=== PATIENT | female | born 1965 | race Caucasian/White ===

== ENCOUNTER 2020-03-25 08:13 | Outpatient (CLI) | payer OTHER, SELFPAY ==
--- NOTE | 2020-03-25 08:31 | MM_ITS ---
WS: [id number] BILATERAL DIGITAL SCREENING MAMMOGRAPHY WITH CAD CLINICAL INFORMATION: SCREENING HISTORY: Screening mammogram. No current complaints. COMPARISON: TECHNIQUE: Bilateral CC and MLO views. FINDINGS: The breasts are composed of heterogeneous fibroglandular density tissue, which can limit the detectio n of small underlying mass lesions. No suspicious mass, asymmetry, calcifications, or architectural d istortion. No evidence of malignancy. MM/[place] [id number] IMPRESSION: BI-RADS: 1-Negative FOLLOW UP: 1 Year Follow-up Recommend return to annual screening mammography.
== END 2020-03-25 08:14 | disposition home or self-care (01) ==
LOC: RADSHAW 08:26
PROVIDERS: PCP Internal Medicine; Visit Provider Nurse Practitioner Family
DX: Z12.31 Encounter for screening mammogram for malignant neoplasm of breast (principal)
CPT/HCPCS: 77067

== ENCOUNTER 2020-04-04 11:12 | Outpatient (CLI) | payer OTHER, SELFPAY ==
--- NOTE | 2020-04-04 | XRR_ITS ---
PROCEDURE INFORMATION: Exam: XR Right Hip with Pelvis when Performed Exam date and time: 04/04/2020 11:33 AM Age: 55 years old Clinical indication: Patient HX: C/O low back pain and right hip pain x years; Additional info: Hip joint pain TECHNIQUE: Imaging protocol: XR Right hip with pelvis when performed. Views: 1 view. COMPARISON: No relevant prior studies available. FINDINGS: Bones/joints: Unremarkable. No acute fracture. Soft tissues: Unremarkable. XR/XR hip RT 2-3V wo/w pel* [id number] IMPRESSION: No acute findings.
--- NOTE | 2020-04-04 | XRR_ITS ---
PROCEDURE INFORMATION: Exam: XR Lumbosacral Spine, 2 or 3 Views Exam date and time: 04/04/2020 11:33 AM Age: 55 years old Clinical indication: Patient HX: C/O low back pain and right hip pain; Additional info: Lumbago TECHNIQUE: Imaging protocol: XR of the lumbosacral spine, 2 or 3 views. COMPARISON: No relevant prior studies available. FINDINGS: Vertebrae: There is narrowing of the intervertebral disc space of multiple levels corresponding to mild osteoarthritis. The examination is negative for acute fracture or subluxation. Vertebral height is preserved. Pedicles are otherwise unremarkable. Soft tissues: Paravertebral soft tissues are unremarkable. XR/XR lumbar spine min 4V [id number] IMPRESSION: 1. Mild osteoarthritis. 2. Negative for acute bony abnormality.
== END 2020-04-04 11:13 | disposition home or self-care (01) ==
LOC: RADWPI 11:16
PROVIDERS: Family Provider Internal Medicine; PCP Internal Medicine; Visit Provider Nurse Practitioner Family
DX: M54.5 Low back pain (principal); M25.551 Pain in right hip; M47.816 Spondylosis without myelopathy or radiculopathy, lumbar region
CPT/HCPCS: 72114; 73502

== ENCOUNTER 2020-05-03 08:30 | Outpatient (CLI) | payer OTHER, SELFPAY ==
--- NOTE | 2020-05-03 08:34 | MR_ITS ---
WS: [id number] MRI LUMBAR SPINE NONCONTRAST HISTORY: DEGENERATIVE DISC DISEASE LUMBOSACRAL SPINE W/RADICULOPATHY COMPARISON: 08/09/2009 TECHNIQUE: Sagittal and axial multisequence imaging is submitted. Moderate progression of degenerative disc disease and spondylosis since 2008. Mild RIGHT curvature of the lower lumbar spine. 3 mm retrolisthesis of L2 and L3. Mild disc space narrowing and desiccation at L2-3, L4-5 and L5-S1. Degenerative marrow edema in L2 an d L3 with endplate osteophytes. 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 Conus terminates normally at L1-2 disc level. L1-L2: Normal. L2-L3: Diffuse annular disc bulging. Vertebral body osteophytes with mild facet and ligamentum flavum hypertrophy. Very mild bilateral foraminal narrowing and encroachment upon the RIGHT L3 nerve root i n the subarticular recess. RIGHT foraminal disc protrusion not contacting the nerve root. L3-L4: Diffuse annular disc bulging with a RIGHT paracentral small disc protrusion with annular fissu re. Mild contact on the RIGHT L4 nerve root in the subarticular recess. No significant foraminal sten osis. L4-L5: Moderate annular disc bulging and osteophytosis. Disc is asymmetric and more prominent to the LEFT. Moderate ligamentum flavum and facet joint arthritis. L5-S1: Mild annular disc bulge. No stenosis. Paravertebral soft tissues are normal. RIGHT renal cyst measures 4.0 cm. MR/MR lumbar spine wo con* [id number] IMPRESSION: 1. Moderate progression of spondylosis and degenerative changes since 2008. 2. Most significant advancing disc disease at L2-3. 3. RIGHT paracentral disc protrusion and mild contact on the RIGHT L4 nerve ro ot in the subarticular recess at L3-4. 4. RIGHT foraminal disc protrusion without contact on the nerve root at L2-3. 5. Mild bilateral foraminal narrowing and mild encroachment upon the RIGHT L3 nerve root. 6. No significant stenosis.
== END 2020-05-03 08:31 | disposition home or self-care (01) ==
LOC: RADSHAW 08:33
PROVIDERS: PCP Internal Medicine; Visit Provider Internal Medicine
DX: M51.17 Intervertebral disc disorders with radiculopathy, lumbosacral region (principal); M47.816 Spondylosis without myelopathy or radiculopathy, lumbar region; M51.36 Other intervertebral disc degeneration, lumbar region; M51.26 Other intervertebral disc displacement, lumbar region
CPT/HCPCS: 72148

== ENCOUNTER → 2020-07-28 09:52 | Outpatient (BNVA) | payer OTHER, SELFPAY | PROVIDERS: PCP Internal Medicine; Visit Provider Urology | DX: N39.0 Urinary tract infection, site not specified (principal) | CPT/HCPCS: 81003 ==

== ENCOUNTER 2020-08-25 10:28 | Outpatient (RCR) | payer OTHER, SELFPAY | END 2020-09-15 23:59 | disposition home or self-care (01) | LOC: SPT 10:28 | PROVIDERS: PCP Internal Medicine; Referring Provider Chiropractor; Visit Provider Chiropractor | DX: M54.5 Low back pain (principal) | CPT/HCPCS: 97110; 97161 ==

== ENCOUNTER 2021-04-26 07:55 | Outpatient (CLI) | payer OTHER, SELFPAY ==
--- NOTE | 2021-04-26 08:02 | MM_ITS ---
WS: [id number] SCREENING DIGITAL MAMMOGRAM WITH CAD HISTORY: Screening. COMPARISON: 03/25/2020 and 01/23/2019 Bilateral CC and MLO views submitted. Computer aided detection analyzed. Breast composition: There are scattered areas of fibroglandular density. No suspicious masses, microc alcifications or architectural distortion. MM/[place] [id number] IMPRESSION: BI-RADS: 1-Negative FOLLOW UP: 1 Year Follow-up
== END 2021-04-26 07:56 | disposition home or self-care (01) ==
LOC: RADSHAW 07:59
PROVIDERS: PCP Internal Medicine; Visit Provider Internal Medicine
DX: Z12.31 Encounter for screening mammogram for malignant neoplasm of breast (principal)
CPT/HCPCS: 77067

== ENCOUNTER → 2021-06-07 15:17 | Outpatient (BNVA) | payer OTHER, SELFPAY | PROVIDERS: PCP Internal Medicine; Visit Provider Registered Nurse Neonatal Intensive Care | DX: S99.911A Unspecified injury of right ankle, initial encounter (principal); X58.XXXA Exposure to other specified factors, initial encounter; M79.89 Other specified soft tissue disorders | CPT/HCPCS: 73610 ==

== ENCOUNTER → 2021-06-09 14:16 | Outpatient (BNVA) | payer OTHER, SELFPAY | PROVIDERS: PCP Internal Medicine; Visit Provider Podiatrist Foot & Ankle Surgery | DX: S82.891A Other fracture of right lower leg, initial encounter for closed fracture (principal); X58.XXXA Exposure to other specified factors, initial encounter | CPT/HCPCS: 73610 ==

== ENCOUNTER → 2021-06-22 12:51 | Outpatient (BNVA) | payer OTHER, SELFPAY | PROVIDERS: PCP Internal Medicine; Visit Provider Podiatrist Foot & Ankle Surgery | DX: S82.891A Other fracture of right lower leg, initial encounter for closed fracture (principal); S82.61XA Displaced fracture of lateral malleolus of right fibula, initial encounter for closed fracture; X58.XXXA Exposure to other specified factors, initial encounter | CPT/HCPCS: 73610 ==

== ENCOUNTER → 2021-08-25 09:57 | Outpatient (BNVA) | payer OTHER, SELFPAY | PROVIDERS: PCP Internal Medicine; Visit Provider Surgery | DX: Z80.0 Family history of malignant neoplasm of digestive organs (principal); Z20.822 Contact with and (suspected) exposure to COVID-19 | CPT/HCPCS: 87635 ==

== ENCOUNTER 2021-08-28 07:52 | Day surgery (SDC) | payer OTHER, SELFPAY ==
[2021-08-25 11:33] VITALS: BMI 22.6
--- NOTE | 2021-08-28 08:06 | ANES.PREANE2 ---
Pre-Anesthetic Assessment Pre-Anesthetic Assessment: Height/Weight: Height 1.68 m Weight 63.503 kg Proposed Procedure: Operation Date: 08/28/21 09:30 Proposed Procedures p Colonoscopy 08462 Z80.0 R19.4(Not Applicable) - Stoney Wild MD Was Beta Krystian taken within 24 hours: N/A Was Clonidine taken within 24 hours: N/A Social: Social History: No alcohol and No tobacco Exam: Pre-Anes Outpt Exam: alert, oriented x 3, clear to auscultation bilaterally and regular rate & rhythm Airway: Submandibular: WNL Cervical ROM: WNL MP: 2 Dentition: Chipped and Full CV/HEM: CV/HEM: HTN Anesthetic Plan: ASA status: 2 Anesthesia: MAC Risk of > 500 ml blood loss (7ml/kg in children): No PFSH Anesthesia PFSH: Medical History (Updated 07/26/21 @ 12:19 by Serjio Tipton DPM) Anxiety Chronic back pain HTN (hypertension) Recurrent UTI Renal cyst Surgical History History of partial hysterectomy Hx of bladder repair surgery Family History Father Cancer COLON Mother CAD (coronary artery disease) LYMPHOMA, HTN, DIABETES,THYROID PROBLEMS Social History Smoking and tobacco status: never smoked Alcohol intake: current Alcohol intake frequency: holidays/special occasions only Adopted: No Caregiver/support person: No Marital status: / Current occupational status: employed Data Anesthesia Cardiac Studies: No Data to Display
[2021-08-28 08:18] VITALS: BP 157/97; PULSE 86; RESP 18; TEMP 36.2; O2SAT 98
[2021-08-28] MEDS: sodium chloride 0.9% 1,000 ML 30 ML IV (08:27)
--- NOTE | 2021-08-28 09:44 | P.HP_ITS ---
Same Day Surgery H&P Indication for Procedure/HPI DATE OF PROCEDURE: August 28, 2021 CHIEF COMPLAINT/INDICATIONFOR SURGICAL PROCEDURE: SCREENING COLONOSCOPY PREOP DIAGNOSIS: Family history of colon cancer PLANNED PROCEDRUE: Operation Date: 08/28/21 09:30 Proposed Procedures p Colonoscopy 62371 Z80.0 R19.4(Not Applicable) - Stoney Wild MD This is a pleasant 56 years old female patient referred to my practice for screening colonoscopy as she does report her dad had history of colon cancer x2 and ended up by colostomy. Patient's last colonoscopy 5 years ago and was normal. ROS All systems have been reviewed negative except as per the above or per problem list Medications/Allergies* Home Medications Medication Instructions Recorded Confirmed Type estradiol 1 mg tablet 1 mg PO DAILY 07/28/20 08/25/21 History hydrochlorothiazide 25 mg tablet 25 mg PO DAILY 07/28/20 08/25/21 History lisinopril 5 mg tablet 5 mg PO DAILY 07/28/20 08/25/21 History Allergies/Adverse Reactions Allergy/AdvReac Type Severity Reaction Status Date / Time codeine Allergy Unknown Unknown Verified 08/28/21 09:51 tramadol Allergy Unknown ADR-Anxiety Verified 08/28/21 09:51 Current Medications: Generic Name Dose Route Start Last Admin Trade Name Freq PRN Reason Stop Dose Admin Sodium Chloride 1,000 mls @ 30 mls/hr 08/28/21 08:15 08/28/21 08:27 Sodium Chloride 0.9% IV 08/29/21 08:14 30 mls/hr .Q24H JENNIFER Administration Pertinent History/Comorbid Conditions* Medical History (Updated 07/26/21 @ 12:19 by Serjio Tipton DPM) Anxiety Chronic back pain HTN (hypertension) Recurrent UTI Renal cyst Surgical History (Updated 07/28/20 @ 11:41 by Ne Jaramillo APRN) History of partial hysterectomy Hx of bladder repair surgery Family History (Updated 07/14/20 @ 15:20 by CHRISTIANO Valle) CAD (coronary artery disease) Mother LYMPHOMA, HTN, DIABETES,THYROID PROBLEMS Cancer Father COLON Social History Smoking and tobacco status: never smoked Alcohol intake: current Alcohol intake frequency: holidays/special occasions only Adopted: No Caregiver/support person: No Marital status: / Current occupational status: employed Pertinent Exam Findings alert, oriented x 3, regular rate & rhythm and procedure specific exam findings (Abdominal examination nontender nondistended soft) Recommendations Surgery/Procedure today Other Plans: Plan of care; After thorough history and physical examination and reviewing the chart, plan to perform screening colonoscopy. I discussed with the patient in details the risks,benefits,alternatives and indications.The risk of aspiration, bleeding, soft tissue injury, perforation of the colon and other potential concomitant complications were explained to the patient in details,also the potential need for Laproscoy/Laparotomy to repair any related complications including but not limited to colectomy and or Closotomy.The patient understood this well and did agree to proceed. Rationale was carefully and clearly discussed with the patient.Appropriate informed consent have been reviewed and signed All questions have been answered and all concerns have been addressed to rivka cuadra's satisfaction. Verbal and written Instructions were given to the patient for colonoscopy prep Coding Level of Care Code Acute Staff Development Nurse for Arya Tavarez
[2021-08-28 10:30] VITALS: BP 112/75; BP 121/80; PULSE 60; PULSE 67; RESP 16; RESP 18; TEMP 36.1; O2SAT 97; O2SAT 98
--- NOTE | 2021-08-28 14:53 | ANE.PACU2 ---
Inpatient post-anesthesia follow up: Airway intact: Yes Vital signs: Temperature 97 F Pulse Rate 60 Respiratory Rate 18 Blood Pressure 112/75 Pulse Oximetry 98 Oxygen Delivery Me thod Room Air Oxygen Flow Rate 3 Fraction of Inspir ed Oxygen Hydration adequate: Yes Nausea and vomiting: No Pain level: 1 Mental status: Baseline
== END 2021-08-28 10:53 | disposition home or self-care (01) ==
PROVIDERS: PCP Internal Medicine; Visit Provider Surgery
PROC: 0DJD8ZZ Inspection of Lower Intestinal Tract, Via Natural or Artificial Opening Endoscopic (ICD-10-PCS; CPT 45378; principal; 2021-08-28 09:30)
DX: Z12.11 Encounter for screening for malignant neoplasm of colon (principal); R19.4 Change in bowel habit; I10 Essential (primary) hypertension; F41.9 Anxiety disorder, unspecified; Z80.0 Family history of malignant neoplasm of digestive organs
CPT/HCPCS: 45378; 96360; 96361; J2704; J7030

== ENCOUNTER 2021-09-06 07:03 | Outpatient (CLI) | payer OTHER, SELFPAY ==
--- NOTE | 2021-09-06 07:15 | MR_ITS ---
WS: [id number] MRI RIGHT ANKLE without CONTRAST. COMPARISON: 06/22/2021 Multiplanar, multisequence imaging is performed without contrast. No marrow edema or fracture. Very mild narrowing of the tibiotalar joint space. Ligaments and tendons around the ankle are normal. Peroneal brevis and longus tendons are normal. Flexor hallucis longus a nd the tibialis tendons are normal. The Achilles tendon is normal. There is no significant joint effu yan. No soft tissue edema or fracture. Remote avulsion fracture at the medial malleolus. No associat ed marrow or soft tissue edema. MR/MR ankle RT wo con* [id number] IMPRESSION: 1. No acute fracture or marrow edema. 2. No significant ligament or tendon abnormalities are identified. 3. No joint effusion. 4. Very mild tibiotalar joint space narrowing from osteoarthritis.
== END 2021-09-06 07:04 | disposition home or self-care (01) ==
PROVIDERS: PCP Internal Medicine; Visit Provider Podiatrist Foot & Ankle Surgery
DX: S82.61XD Displaced fracture of lateral malleolus of right fibula, subsequent encounter for closed fracture with routine healing (principal); X58.XXXD Exposure to other specified factors, subsequent encounter
CPT/HCPCS: 73721

== ENCOUNTER 2021-10-06 06:00 | Outpatient (RCR) | payer OTHER, SELFPAY | END 2021-10-16 23:59 | disposition home or self-care (01) | LOC: SPT 06:00 | PROVIDERS: PCP Internal Medicine; Referring Provider Podiatrist Foot & Ankle Surgery; Visit Provider Podiatrist Foot & Ankle Surgery | DX: S93.401D Sprain of unspecified ligament of right ankle, subsequent encounter (principal); X58.XXXD Exposure to other specified factors, subsequent encounter | CPT/HCPCS: 97110; 97150; 97162 ==

== ENCOUNTER 2021-10-17 06:00 | Outpatient (RCR) | payer OTHER, SELFPAY | END 2021-11-13 23:59 | disposition home or self-care (01) | LOC: SPT 06:00 | PROVIDERS: PCP Internal Medicine; Referring Provider Podiatrist Foot & Ankle Surgery; Visit Provider Podiatrist Foot & Ankle Surgery | DX: S93.491D Sprain of other ligament of right ankle, subsequent encounter (principal); X58.XXXD Exposure to other specified factors, subsequent encounter | CPT/HCPCS: 97110; 97150; G0283 ==

== ENCOUNTER → 2021-11-10 15:03 | Outpatient (BNVA) | payer OTHER, SELFPAY | PROVIDERS: PCP Internal Medicine; Visit Provider Podiatrist Foot & Ankle Surgery | DX: S99.911D Unspecified injury of right ankle, subsequent encounter (principal); X58.XXXD Exposure to other specified factors, subsequent encounter | CPT/HCPCS: 73610 ==

== ENCOUNTER 2021-11-14 06:00 | Outpatient (RCR) | payer OTHER, SELFPAY | END 2021-12-14 23:59 | disposition home or self-care (01) | LOC: SPT 06:00 | PROVIDERS: PCP Internal Medicine; Referring Provider Podiatrist Foot & Ankle Surgery; Visit Provider Podiatrist Foot & Ankle Surgery | DX: S93.401D Sprain of unspecified ligament of right ankle, subsequent encounter (principal); X58.XXXD Exposure to other specified factors, subsequent encounter | CPT/HCPCS: 97110 ==

== ENCOUNTER → 2021-12-12 13:48 | Outpatient (BNVA) | payer OTHER, SELFPAY | PROVIDERS: PCP Internal Medicine; Visit Provider Podiatrist Foot & Ankle Surgery | DX: S82.61XD Displaced fracture of lateral malleolus of right fibula, subsequent encounter for closed fracture with routine healing (principal); X58.XXXD Exposure to other specified factors, subsequent encounter | CPT/HCPCS: 73610 ==

== ENCOUNTER 2022-03-07 11:32 | Outpatient (CLI) | payer OTHER, SELFPAY ==
--- NOTE | 2022-03-07 11:46 | XR_ITS ---
WS: [id number] Exam: XR wrist RT 2V [id number] Date/Time of Exam: 03/07/2022 11:53 AM Reason For Exam: R WRIST PAIN Comparison 07/28/2019. There are no fractures, soft tissue swelling, or unusual calcifications. The wrist shows normal bony alignment. There is no irregularity of the bony architecture. XR/XR wrist RT 2V [id number] IMPRESSION: Negative right wrist.
--- NOTE | 2022-03-07 11:49 | XR_ITS ---
WS: [id number] Exam: XR hip RT 2-3V wo/w pel* [id number] Date/Time of Exam: 03/07/2022 11:53 AM Reason For Exam: CONTUSION R HIP/FALL Comparison 04/04/2020. No fracture or dislocation. The joint compartments relatively well maintained. Normal soft tissues. XR/XR hip RT 2-3V wo/w pel* [id number] IMPRESSION: 1. Unremarkable right hip.
== END 2022-03-07 11:33 | disposition home or self-care (01) ==
LOC: RAD 11:33
PROVIDERS: PCP Internal Medicine; Visit Provider Internal Medicine
DX: M25.531 Pain in right wrist (principal); S70.01XD Contusion of right hip, subsequent encounter; W19.XXXD Unspecified fall, subsequent encounter
CPT/HCPCS: 73100; 73502

== ENCOUNTER 2022-04-16 12:52 | Outpatient (CLI) | payer OTHER, SELFPAY ==
--- NOTE | 2022-04-16 13:07 | XR_ITS ---
WS: [id number] SCREENING DEXA SCAN [place] CLINICAL INFORMATION: ASYMPTOMATIC POSTMENOPAUSAL COMPARISON: None. FINDINGS: The L1-L4 bone mineral density measures 1.500 g/cm2. This corresponds to a T score score of 2.7 and Z score of 3.8. Left femoral neck bone mineral density measures 1.066 g/cm2. This corresponds to a T score of 0.5 and Z score of 1.3. Right femoral neck bone mineral density measures 1.042 g/cm2. This corresponds to a T score 0.3of and Z score of 1.1. Mean femoral neck bone mineral density measures 1.054 g/cm2. This corresponds to a T score of 0.4 and Z score of 1.2. XR/XR DEXA axial skeleton* [id number] IMPRESSION: Normal bone mineralization. Patient's FRAX calculated 10 year probability for major osteoporotic fracture i s 8.5 % and osteoporotic hip fracture is 0.2%.
== END 2022-04-16 12:53 | disposition home or self-care (01) ==
LOC: RAD 12:53
PROVIDERS: PCP Internal Medicine; Visit Provider Internal Medicine
DX: Z78.0 Asymptomatic menopausal state (principal)
CPT/HCPCS: 77080

== ENCOUNTER 2022-04-30 08:03 | Outpatient (CLI) | payer OTHER, SELFPAY ==
--- NOTE | 2022-04-30 08:09 | MM_ITS ---
WS: [id number] VIEWS: MLO and CC views both breasts. 3D digital tomosynthesis is also included in this exam. Comparison made with prior exam of 12/21/2015, 12/21/2016, 01/22/2018, 01/23/2019, 03/25/2020, and 04/26/2021. . Findings: There was no sign of mass, architectural distortion or suspicious calcification in either breast. Sc attered fibroglandular densities MM/[place] [id number] Impression: BI-RADS: 2-Benign FOLLOW-UP: 1 Year Follow-up This mammogram was also analyzed by the Computer Aided Detection System R2 Imag e Senior Asic Design Engineer.
== END 2022-04-30 08:04 | disposition home or self-care (01) ==
LOC: RAD 08:04
PROVIDERS: PCP Internal Medicine; Visit Provider Internal Medicine
DX: Z12.31 Encounter for screening mammogram for malignant neoplasm of breast (principal)
CPT/HCPCS: 77063; 77067

== ENCOUNTER → 2022-07-31 08:39 | Outpatient (BNVA) | payer OTHER, SELFPAY | PROVIDERS: PCP Internal Medicine; Visit Provider Urology | DX: N39.0 Urinary tract infection, site not specified (principal) | CPT/HCPCS: 81003 ==

== ENCOUNTER 2022-08-06 08:41 | Outpatient (CLI) | payer OTHER, SELFPAY ==
--- NOTE | 2022-08-06 08:45 | MR_ITS ---
WS: [email or web address] MRI RIGHT ANKLE NONCONTRAST TECHNIQUE: Sagittal proton density, sagittal STIR, axial proton density, axial T1, axial T2 fat sat, coronal proton density, coronal proton density fat sat, coronal T2 fat sat. CLINICAL INFORMATION: Right Ankle Pain COMPARISON: MRI September 06, 2021 FINDINGS: Distal Achilles tendon is intact. Normal plantar fascia aponeurosis. Normal bone marrow signal in the talus and calcaneus. Normal cuboid. Base of the 5th metatarsal is normal. Normal tarsal bones. Patria l navicular. Normal talonavicular articulation. Normal talocalcaneal articulation. Well-corticated ch ronic avulsion at the tip of the lateral malleolus. No significant edema. This has a chronic appearan ce. Normal medial malleolus. Normal peroneus longus and brevis. Normal extensor and flexor compartment tendons. No other suspiciou s findings. MR/MR ankle RT wo con* [id number] IMPRESSION: 1. Well-corticated chronic avulsion at the tip of the lateral malleolus. No si gnificant edema. This has a chronic appearance 2. No acute fractures. 3. Peroneus longus and brevis are normal in appearance. Normal extensor and fl exor compartment tendons. 4. No other suspicious findings.
== END 2022-08-06 08:42 | disposition home or self-care (01) ==
PROVIDERS: PCP Internal Medicine; Visit Provider Podiatrist Foot & Ankle Surgery
DX: M25.571 Pain in right ankle and joints of right foot (principal)
CPT/HCPCS: 73721

== ENCOUNTER 2023-05-01 09:31 | Outpatient (CLI) | payer OTHER, SELFPAY ==
--- NOTE | 2023-05-01 09:44 | MM_ITS ---
WS: [id number] BILATERAL SCREENING DIGITAL TOMOSYNTHESIS MAMMOGRAM WITH CAD HISTORY: SCREENING COMPARISON: 04/30/2022 and 04/26/2021 Bilateral CC and MLO views with tomosynthesis and synthetic mammography submitted. Computer aided det ection analyzed. Breast composition: There are scattered areas of fibroglandular density. No suspicious masses, microc alcifications or architectural distortion. IMPRESSION: MM/[place] [id number] BI-RADS: 1-Negative FOLLOW UP: 1 Year Follow-up
== END 2023-05-01 09:32 | disposition home or self-care (01) ==
LOC: RAD 09:35 → MOBLMAM 09:45
PROVIDERS: PCP Internal Medicine; Visit Provider Internal Medicine
DX: Z12.31 Encounter for screening mammogram for malignant neoplasm of breast (principal)
CPT/HCPCS: 77063; 77067

== ENCOUNTER 2023-06-20 10:05 | Outpatient (CLI) | payer OTHER, SELFPAY ==
--- NOTE | 2023-06-20 10:17 | XR_ITS ---
WS: [email or web address] EXAMINATION: XR hand LT min 3V* [id number] REASON FOR EXAM: PAIN IN JOINTS OF LEFT HAND COMPARISON: None available. ORDER DATE: 06/20/2023 10:35 AM FINDINGS: There is no sign of any acute osseous or articular abnormality. There are no specific soft tissue abn ormalities. IMPRESSION: No acute osseous or articular abnormality
== END 2023-06-20 10:06 | disposition home or self-care (01) ==
PROVIDERS: PCP Internal Medicine; Visit Provider Internal Medicine
DX: M25.542 Pain in joints of left hand (principal)
CPT/HCPCS: 73130

== ENCOUNTER 2024-05-06 08:01 | Outpatient (CLI) | payer OTHER, SELFPAY ==
--- NOTE | 2024-05-06 08:07 | MM_ITS ---
WS: [id number] BILATERAL SCREENING DIGITAL TOMOSYNTHESIS MAMMOGRAM WITH CAD HISTORY: SCREENING COMPARISON: 05/01/2023, 04/30/2022 Bilateral CC and MLO views with tomosynthesis and synthetic mammography submitted. Computer aided det ection analyzed. Breast composition: The breasts are heterogeneously dense, which may obscure small masses. No suspici ous masses, microcalcifications or architectural distortion. MM/[place] [id number] IMPRESSION: BI-RADS: 1-Negative FOLLOW UP: 1 Year Follow-up
== END 2024-05-06 08:02 | disposition home or self-care (01) ==
LOC: RAD 08:02
PROVIDERS: PCP Internal Medicine; Visit Provider Internal Medicine
DX: Z12.31 Encounter for screening mammogram for malignant neoplasm of breast (principal)
CPT/HCPCS: 77063; 77067

== ENCOUNTER 2024-07-13 06:57 | Outpatient (CLI) | payer OTHER, SELFPAY ==
--- NOTE | 2024-07-13 07:00 | US_ITS ---
WS: [email or web address] RIGHT UPPER QUADRANT ULTRASOUND HISTORY: Ruq Pain COMPARISON: 04/17/2019 Liver: 14.8 cm in length. Normal size liver and echogenicity. No bile duct dilatation or mass. Portal Vein: Normal hepatopetal flow with monophasic waveform. Gallbladder: Normally distended gallbladder appears slightly elongated. No mass or wall thickening. N o stones. CBD: 0.6 cm Pancreas: Completely obscured. Right kidney: 9.4 cm in length. Normal size kidney. Simple cyst from the upper pole measures 4.2 x 4. 0 x 4.0 cm with slight increase in size since 2019. Aorta and IVC: Unremarkable abdominal aorta and IVC. No ascites. US/US abdomen limited [id number] IMPRESSION: 1. No cholelithiasis or evidence for acute cholecystitis. 2. Common bile duct is top normal size but similar to the study from 2019. 3. Slight increase in size simple cyst upper pole RIGHT kidney since 2019.
== END 2024-07-13 06:58 | disposition home or self-care (01) ==
LOC: RAD 06:57
PROVIDERS: PCP Internal Medicine; Visit Provider Nurse Practitioner Family
DX: N28.1 Cyst of kidney, acquired (principal); R10.11 Right upper quadrant pain
CPT/HCPCS: 76705

== ENCOUNTER → 2024-07-21 09:42 | Outpatient (BNVA) | payer OTHER, SELFPAY | PROVIDERS: PCP Internal Medicine; Visit Provider Obstetrics & Gynecology | DX: Z01.419 Encounter for gynecological examination (general) (routine) without abnormal findings (principal) | CPT/HCPCS: 88175 ==

== ENCOUNTER → 2024-08-05 10:46 | Outpatient (BNVA) | payer OTHER, SELFPAY | PROVIDERS: PCP Internal Medicine; Visit Provider Surgery | DX: E04.9 Nontoxic goiter, unspecified (principal) | CPT/HCPCS: 36415; 84439; 84443 ==

== ENCOUNTER 2024-08-10 10:32 | Outpatient (CLI) | payer OTHER, SELFPAY ==
--- NOTE | 2024-08-10 10:45 | FL_ITS ---
WS: [id number] Barium swallow and esophagram, 08/10/2024 Clinical Data: Recent neck swelling and difficulty swallowing, feeling of material sticking in throat . Comparison: None. Fluoroscopy time: 2min [id number] # of spot films: 6 Findings: The patient swallowed the thick and thin barium, and it flowed through the hypopharynx without hesita tion. No stricture, mass, polyp or erosion was seen. There was no aspiration or penetration. The barium entered the esophagus and there was normal motility throughout. No hiatal hernia, reflux, stricture, polyp, mass, erosion or ulcer was noted. The barium passed normally into the stomach.. FL/FL barium swallow [id number] Impression: Normal esophagram.
--- NOTE | 2024-08-10 15:45 | US_ITS ---
WS: [id number] THYROID ULTRASOUND HISTORY: goiter COMPARISON: None available. Right lobe: 1.0 cm x 2.0 cm x 4.3 cm (w x ap x l). Volume: 4.1 cm3. Normal size and echotexture. No significant are dominant nodules are present. There is a mixed echogenicity structure posterior to the middle thyroid. This is seen best on the tra nsverse images but elongates into a normal-appearing muscle on the sagittal images. The thyroid gland itself appears normal. Left lobe: 0.9 cm x 1.2 cm x 4.4 cm (w x ap x l). Volume: 2.3 cm3. Normal size and echotexture. No significant or dominant nodules are present. Isthmus: 0.2 cm. US/US thyroid [id number] IMPRESSION: Normal thyroid ultrasound.
== END 2024-08-10 10:33 | disposition home or self-care (01) ==
LOC: RAD 10:32
PROVIDERS: PCP Internal Medicine; Visit Provider Surgery
DX: R13.10 Dysphagia, unspecified (principal); E04.9 Nontoxic goiter, unspecified
CPT/HCPCS: 74220; 76536

== ENCOUNTER → 2024-08-17 10:56 | Outpatient (BNVA) | payer OTHER, SELFPAY | PROVIDERS: PCP Internal Medicine; Visit Provider Obstetrics & Gynecology | DX: R10.2 Pelvic and perineal pain (principal) | CPT/HCPCS: 76830 ==

== ENCOUNTER 2024-08-18 07:38 | Day surgery (SDC) | payer OTHER, SELFPAY ==
--- NOTE | 2024-08-18 06:08 | W.PM.OPSUD ---
Surgery/Procedure H&P Update DATE OF PROCEDURE: August 18, 2024 DATE H&P PERFORMED: 08/10/21 H&P UPDATE INFORMATION: I have reviewed H&P completed within last 30 days, I have examined patient prior to procedure, No changes to prior documentation and H&P is in [facility] date indicated PLANNED PROCEDURE: Operation Date: 08/18/24 08:45 Proposed Procedures p EGD Dilation W/ Balloon 21736, R13.10(Not Applicable) - Jason Hernandez MD
[2024-08-18 07:49] VITALS: BP 154/96; PULSE 59; RESP 16; TEMP 36.6; O2SAT 99; BMI 22.6
--- NOTE | 2024-08-18 09:09 | ANES.PREANE2 ---
Pre-Anesthetic Assessment Height/Weight: Height 1.68 m Weight 63.503 kg Temp Pulse Resp BP Pulse Ox O2 Del Method 97.8 F 59 L 16 154/96 99 Room Air 08/18/24 07:49 08/18/24 07:49 08/18/24 07:49 08/18/24 07:49 08/18/24 07:49 08/18/24 07:49 Operation Date: 08/18/24 08:45 Proposed Procedures p EGD Dilation W/ Balloon 99212, R13.10(Not Applicable) - Jason Hernandez MD Familial anesthetic complications: None Was Beta Krystian taken within 24 hours: N/A Was Clonidine taken within 24 hours: N/A Last intake: Intake Last Liquid Date 08/17/24 Last Liquid Time 21:00 Last Solid Date 08/17/24 Last Solid Time 16:00 Social No alcohol and No tobacco Exam alert, oriented x 3, clear to auscultation bilaterally and regular rate & rhythm Airway Submandibular: Other (TMJ sees chiropractor) Cervical ROM: within normal limits Mallampati: Class II Dentition: full History/ROS No significant history except as noted and No significant complaints Pulmonary None reported 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 and no ventilation CV/HEM Myocardial Infarction Urinary Tract Infection Cyst right kidney Hepatic None reported GI Dysphagia/abdominal pain Metabolic None reported Musc/skel Lower Back Pain and Osteoarthritis/DJD Neuropsych Anxiety Anesthetic Plan ASA status: 2 Anesthesia: Anesthesia Evaluation, General and MAC Risk of > 500 ml blood loss (7ml/kg in children): No Medications/Allergies Home Medications Medication Instructions Recorded Confirmed Last Taken Type hydrochlorothiazide 25 mg tablet 25 mg PO DAILY 07/28/20 08/18/24 08/17/24 History lisinopril 5 mg tablet 5 mg PO DAILY 07/28/20 08/18/24 08/17/24 History escitalopram oxalate 10 mg tablet 10 mg PO BEDTIME 07/21/24 08/18/24 08/17/24 History (Lexapro) estradiol 0.01% (0.1 mg/gram) 1 appful vaginal DAILY #42.5 grams 07/21/24 08/18/24 08/17/24 Rx vaginal cream (Estrace) omeprazole 40 mg capsule,delayed 40 mg PO DAILY 07/21/24 08/18/24 08/17/24 History release diclofenac sodium 50 mg 50 mg PO BID PRN Pain 08/11/24 08/18/24 Unknown History tablet,delayed release ondansetron 4 mg disintegrating 4 mg PO QID PRN Nausea And Vomiting 08/11/24 08/18/24 Unknown History tablet Allergies Allergy/AdvReac Type Severity Reaction Status Date / Time codeine Allergy Unknown Unknown Verified 08/05/24 09:52 tramadol Allergy Unknown ADR-Anxiety Verified 08/05/24 09:52 ketorolac [From Toradol] Allergy Unknown Verified 08/05/24 09:52 [facility] Anesthesia Medical History Chronic back pain Anxiety HTN (hypertension) Renal cyst Recurrent UTI Surgical History (Updated 08/05/24 @ 09:57 by CHRISTIANO Gauthier) Hx of bladder repair surgery History of partial hysterectomy Family History Father Cancer COLON Mother CAD (coronary artery disease) LYMPHOMA, HTN, DIABETES,THYROID PROBLEMS Social History Smoking and tobacco/nicotine status: never used tobacco/nicotine Alcohol intake: current Alcohol intake frequency: holidays/special occasions only Substance/Drug Use: unknown Adopted: No Caregiver/support person: No Marital status: / Current occupational status: employed Data Anesthesia Cardiac Studies: No Data to Display
[2024-08-18 09:39] VITALS: BP 156/84; PULSE 60; RESP 14; TEMP 36.6; O2SAT 100
[2024-08-18 09:55] VITALS: BP 188/98; PULSE 57; RESP 16; O2SAT 99
--- NOTE | 2024-08-18 10:10 | ANE.PACU2 ---
Inpatient post-anesthesia follow up: Airway intact: Yes Vital signs: Temperature 98 F Pulse Rate 57 Respiratory Rate 16 Blood Pressure 188/98 Pulse Oximetry 99 Oxygen Delivery Me thod Room Air Oxygen Flow Rate Fraction of Inspir ed Oxygen Hydration adequate: Yes Nausea and vomiting: No Pain level: 1 Mental status: Baseline
== END 2024-08-18 10:10 | disposition home or self-care (01) ==
PROVIDERS: PCP Internal Medicine; Visit Provider Surgery
DX: R13.10 Dysphagia, unspecified (principal); K29.50 Unspecified chronic gastritis without bleeding; I25.2 Old myocardial infarction; F41.9 Anxiety disorder, unspecified; I10 Essential (primary) hypertension
CPT/HCPCS: 43239; 88305; 88342; J2704

== ENCOUNTER → 2024-11-11 10:50 | Outpatient (BNVA) | payer OTHER, SELFPAY | PROVIDERS: PCP Internal Medicine; Visit Provider Student in an Organized Health Care Education/Training Program | DX: M67.441 Ganglion, right hand (principal); R03.0 Elevated blood-pressure reading, without diagnosis of hypertension; M65.4 Radial styloid tenosynovitis [de Quervain] | CPT/HCPCS: 73130 ==

== ENCOUNTER 2024-12-08 05:55 | Day surgery (SDC) | payer OTHER, SELFPAY ==
[2024-12-08] VITALS (7 sets, daily range): BP systolic 145–168; BP diastolic 80–94; PULSE 43–68; RESP 12–18; TEMP 36.2–36.6; O2SAT 96–100; BMI 23.3
--- NOTE | 2024-12-08 02:33 | ANES.PREANE2 ---
Pre-Anesthetic Assessment Height/Weight: Height 5 ft 6 in Preop Diagnosis: Mucous cyst of right index finger Operation Date: 12/08/24 07:00 Proposed Procedures p Right Index Finger Mucous Cyst Excision(Right) - Silvano Upton, DO Was Beta Krystian taken within 24 hours: N/A Was Clonidine taken within 24 hours: N/A Social No alcohol and No tobacco Exam alert, oriented x 3, clear to auscultation bilaterally and regular rate & rhythm Airway Submandibular: within normal limits Cervical ROM: within normal limits Mallampati: Class I Dentition: full Anesthetic Plan ASA status: 2 Anesthesia: MAC Other: No prior issues with anesthesia NPO since yesterday evening History of hypertension on hydrochlorothiazide and lisinopril GERD controlled with omeprazole METS>4 Plan for MAC anesthesia with local via surgeon Medications/Allergies Home Medications ?Medication ?Instructions ?Recorded ?Confirmed ?Last Taken ?Type hydrochlorothiazide 25 mg tablet 25 mg PO DAILY 07/28/20 12/08/24 12/08/24 05:30 History lisinopril 5 mg tablet 5 mg PO DAILY 07/28/20 12/07/24 12/07/24 History escitalopram oxalate 10 mg tablet 10 mg PO BEDTIME 07/21/24 12/07/24 12/07/24 History (Lexapro) estradiol 0.01% (0.1 mg/gram) 1 appful vaginal DAILY #42.5 grams 07/21/24 12/07/24 08/17/24 Rx vaginal cream (Estrace) omeprazole 40 mg capsule,delayed 40 mg PO DAILY 07/21/24 12/07/24 12/07/24 History release latanoprost 0.005 % eye drops 1 drp ophthalmic (eye) DAILY 12/07/24 12/07/24 12/07/24 History Allergies Allergy/AdvReac Type Severity Reaction Status Date / Time codeine Allergy Unknown ADR-Anxiety Verified 12/08/24 06:13 tramadol Allergy Unknown ADR-Anxiety Verified 12/08/24 06:13 ketorolac (From Toradol) Allergy Unknown Verified 12/08/24 06:13 [facility] Anesthesia Medical History Chronic back pain Anxiety HTN (hypertension) Renal cyst Recurrent UTI Surgical History Hx of bladder repair surgery History of partial hysterectomy Family History Father Cancer COLON Mother CAD (coronary artery disease) LYMPHOMA, HTN, DIABETES,THYROID PROBLEMS Social History Smoking and tobacco/nicotine status: never used tobacco/nicotine Alcohol intake: current Alcohol intake frequency: holidays/special occasions only Substance/Drug Use: unknown Adopted: No Caregiver/support person: No Marital status: / Current occupational status: employed Data Anesthesia Cardiac Studies: No Data to Display
[2024-12-08] MEDS: scopolamine 1 mg PATCH 1 PATCH TRANSDERMA (06:29)
[2024-12-08] MEDS: acetaminophen 1,000 MG/100 ML PIGGYBACK 400 MG IV (06:38)
[2024-12-08] MEDS: sodium chloride 0.9% 1,000 ML 30 ML IV (06:44)
--- NOTE | 2024-12-08 06:56 | W.PM.OPSUD ---
Surgery/Procedure H&P Update DATE OF PROCEDURE: December 08, 2024 DATE H&P PERFORMED: 11/11/24 H&P UPDATE INFORMATION: I have reviewed H&P completed within last 30 days, I have examined patient prior to procedure and No changes to prior documentation PREOP DIAGNOSIS: Mucous cyst of right index finger PRIMARY INDICATION FOR PROCEDURE: Right index finger mucous cyst PLANNED PROCEDURE: Operation Date: 12/08/24 07:00 Proposed Procedures p Right Index Finger Mucous Cyst Excision(Right) - Silvano Upton DO
[2024-12-08] MEDS: ceFAZolin 2,000 MG in sodium chloride 0.9% (plus) 50 ML 100 MG IV (06:58)
[2024-12-08] MEDS: ROPivacaine 0.5% SDV 30 mL 25 MG INJECTION (07:24)
[2024-12-08] MEDS: lidocaine 1% 10 ML INJ 5 ML INJECTION (07:25)
--- NOTE | 2024-12-08 07:50 | P.BOP_ITS ---
Date of Procedure: 12/08/2024 Surgeon: Silvano Upton DO Staffing Operations Manager(s): None Procedure(s) performed: Right Index finger?mucous?cyst?excision Right Index finger DIP dorsal osteophyte excision Findings of the procedure(s): Patient underwent procedure as planned without issues or complications mucous cyst were sent for specimen as well as patient did have a prominent dorsal osteophyte on the radial side of the digit which was excised with a rongeur. Patient tolerated well without issues or complications taken back to PACU stable condition Estimated blood loss: 2 mL Specimen(s) removed: Right index finger mucous cyst and dorsal osteophyte excision sent for specimen Post-operative diagnosis: Right index finger mucous cyst with prominent dorsal osteophyte
--- NOTE | 2024-12-08 07:52 | P.OP_ITS ---
Operative Report Date of procedure: December 08, 2024 Surgeon: Silvano Upton DO Procedure: Preoperative diagnosis: Right index finger mucous cyst Post-op diagnosis: Right?Index?finger?mucous?cyst Procedure done: Right Index finger?mucous?cyst?excision Right Index finger DIP dorsal osteophyte excision Surgeon: Silvano Upton DO Estimated blood loss: 2 mL Tourniquet time 14 minutes IV fluids: 6 mL Complications: None Findings: See operative report narrative Condition: stable Disposition: same day Brief History: Patient presents to the outpatient setting with findings consistent with a right Index finger?mucous?cyst.? She has been worked up in the outpatient setting and is failed conservative treatment approach.? 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 Patient's failed multiple needle aspirations.? She wishes to proceed with surgical intervention.? We talked about the risk benefits complications and alternatives with surgical nonsurgical treatment options.? Understanding risk of surgery she agrees to proceed with a right Index finger?mucous?cyst?excision.? All questions answered. Procedure: Patient was seen evaluated in the preoperative holding area.? Consent was reviewed and signed with patient.? Correct extremity was then marked.? Patient was then seen and evaluated by the anesthesia department once cleared for surgery patient was then taken back to the operative suite patient was placed in supine position and all bony prominences well-padded the patient was properly secured to the bed.? Armboard was applied to the right upper extremity. This point time the right upper extremity was then prepped and draped in standard orthopedic fashion.? A final timeout was performed.? Patient received appropriate preoperative antibiotics. Prior to proceeding with incision sites I then performed digital block of the right Index finger under sterile aseptic technique # Tourniquet was used exsanguinate the right upper extremity tourniquet was insufflated to 250 mmHg. ? Right Index finger was then identified as well as the?mucous?cyst?over the DIP joint on the midline aspect of the finger.? I then from the eponychial fold made an incision up to the DIP joint and then made a standard L incision to create a full-thickness skin flap to identify the?mucous?cyst.? Sharp scalpel excision and then switching to a [facility] [employer] blade for meticulous dissection under loupe magnification identified a??mucous?cyst?which was then subsequently excised.? Patient was noted to have a bony prominence of the distal phalanx and osteophyte.? Identified the extensor mechanism this was protected carefully throughout my case.? I incised the on the radial aspect of the tendon directly over the osteophyte that was prominent in this area. Tendon was protected. Identified the prominent dorsal osteophyte and then utilized a small rongeur to excise this prominent dorsal osteophyte of the distal phalanx.? Once ostectomy was then complete and smoothed over and laid my skin flap down over the site and?mucous?cyst?was gone as well as patient's dorsal prominence.? Patient did h ave thin tenuous nature of the skin where the?cyst?had been compromised with needle decompressions multiple times. Mucous cyst and osteophyte excision was then sent for specimen. I was satisfied with this I then thoroughly irrigated the wound bed.? Utilize electrocautery to cauterize the previous lining of the undersurface of the skin where the cyst was adhered to as well as the area of it connecting to the joint at the site of the ostectomy. Tourniquet was deflated. Hemostasis was maintained with bipolar electrocautery.? Next I closed the incision with interrupted nylon suture.? Incision sites were then dressed with Xeroform 4 x 4's Kerlix Jr wrap and an Rich wrap.? Patient was then awakened from anesthesia and taken to PACU in stable condition. Disposition: Patient taken to PACU in stable condition recovering well.? Dressing on in place clean dry and intact.? Patient was receive appropriate discharge instruction as well as pain medication postoperatively.? Patient may be allowed weightbearing as tolerated to the right hand and encourage range of motion once dressing come down after 72 hours.? Patient to follow-up with me in the office in 2 weeks.? Patient understands and agrees with current plan.? All questions answered.
--- NOTE | 2024-12-08 08:06 | ANE.PACU2 ---
Inpatient post-anesthesia follow up: Airway intact: Yes Vital signs: Temperature 97.2 F Pulse Rate 43 Respiratory Rate 16 Blood Pressure 163/88 Pulse Oximetry 100 Oxygen Delivery Me thod Room Air Oxygen Flow Rate Fraction of Inspir ed Oxygen Hydration adequate: Yes Nausea and vomiting: No Pain level: 1 Mental status: Baseline
== END 2024-12-08 08:46 | disposition home or self-care (01) ==
PROVIDERS: PCP Internal Medicine; Visit Provider Student in an Organized Health Care Education/Training Program
PROC: (CPT 26236; principal; 2024-12-08 07:00)
PROC: (CPT 26236; 2024-12-08 07:00)
DX: M25.841 Other specified joint disorders, right hand (principal); M25.741 Osteophyte, right hand; M65.4 Radial styloid tenosynovitis [de Quervain]; I10 Essential (primary) hypertension; K21.9 Gastro-esophageal reflux disease without esophagitis; Z79.899 Other long term (current) drug therapy; Z88.5 Allergy status to narcotic agent
CPT/HCPCS: 26236; 26160; 88304; J0131; J0690; J2250; J2371; J2704; J2795; J3010; J7030; J9999

== ENCOUNTER 2025-05-10 07:58 | Outpatient (CLI) | payer OTHER, SELFPAY ==
--- NOTE | 2025-05-10 08:01 | MM_ITS ---
WS: [id number] SCREENING DIGITAL TOMOSYNTHESIS MAMMOGRAM WITH CAD HISTORY: SCREENING COMPARISON: 05/06/2024, 05/01/2023 Bilateral CC and MLO with tomosynthesis views submitted. Synthetic mammography reviewed. Computer aided detection analyzed. Breast composition: There are scattered areas of fibroglandular density. No suspicious masses, microcalcifications or architectural distortion. MM/MM scr BI tomosynthesis [id number] IMPRESSION: BI-RADS: 1 - Negative. FOLLOW UP: 1 Year Follow-up
== END 2025-05-10 07:59 | disposition home or self-care (01) ==
LOC: RAD 07:58
PROVIDERS: PCP Internal Medicine; Visit Provider Internal Medicine
DX: Z12.31 Encounter for screening mammogram for malignant neoplasm of breast (principal); R92.323 Mammographic fibroglandular density, bilateral breasts
CPT/HCPCS: 77063; 77067

== ENCOUNTER 2025-07-28 11:46 | Outpatient (CLI) | payer OTHER, SELFPAY ==
--- NOTE | 2025-07-28 11:57 | XR_ITS ---
WS: [id number] Exam: XR lumbar spine min 4V [id number] Date/Time of Exam: 07/28/2025 12:04 PM Reason For Exam: DEGENERATIVE DISC DISEASE DLP: Comparison 04/04/2020. No fracture or malalignment. Degenerative vacuum discs noted at L2-3 and L4-5. Mild spondylosis. Posterior elements are intact. Facet DJD at all levels. Levoscoliosis of the lower thoracic and upper lumbar spine. XR/XR lumbar spine min 4V [id number] IMPRESSION: 1. No fracture or malalignment. 2. Degenerative changes and levoscoliosis
== END 2025-07-28 11:47 | disposition home or self-care (01) ==
LOC: RAD 11:50
PROVIDERS: PCP Internal Medicine; Visit Provider Internal Medicine
DX: M51.16 Intervertebral disc disorders with radiculopathy, lumbar region (principal); M51.360 Other intervertebral disc degeneration, lumbar region with discogenic back pain only; M47.816 Spondylosis without myelopathy or radiculopathy, lumbar region; M46.96 Unspecified inflammatory spondylopathy, lumbar region
CPT/HCPCS: 72110

== ENCOUNTER 2025-08-18 07:50 | Outpatient (CLI) | payer OTHER, SELFPAY ==
--- NOTE | 2025-08-18 08:12 | MR_ITS ---
WS: [id number] MRI LUMBAR SPINE NONCONTRAST HISTORY: DEGENERATIVE DISC DZ,LUMBOSACRAL SPINE W/RADICULOPATHY COMPARISON: 05/03/2020 TECHNIQUE: Sagittal and axial multisequence imaging is submitted. Mild straightening of the normal lumbar lordosis. Disc spaces are narrowed and desiccated throughout the lumbar spine. No marrow edema or fracture. Conus terminates normally at L1-2 disc level. L1-L2: Normal. L2-L3: Diffuse osteophytic ridging and disc bulging. Mild ligamentum flavum and facet arthritis. Bilateral subarticular recess stenosis, RIGHT greater than LEFT. Greater contact on the traversing RIGHT L3 nerve root. Disc osteophyte complex in the RIGHT foramen causing mild stenosis. L3-L4: Diffuse osteophytic ridging and annular disc bulging. Central disc osteophyte complex deforming the ventral thecal sac. Mild ligamentum flavum and facet arthritis. Mild central and bilateral subarticular recess stenosis with mild encroachment upon the traversing L4 nerve roots. Small bilateral foraminal disc osteophyte complexes. Mild RIGHT foraminal stenosis. L4-L5: Mild annular disc bulging and osteophytic ridging. Central small disc osteophyte complex. Ligamentum flavum and facet arthritis. Mild to moderate central, subarticular recess and LEFT foraminal stenosis. Mild RIGHT foraminal stenosis. LEFT foraminal disc protrusion contributing to the stenosis on the LEFT. L5-S1: Mild disc bulging. Very slight contact on the S1 nerve roots. Mild facet arthritis. Minimal foraminal stenosis. RIGHT renal cyst 4.6 cm. MR/MR lumbar spine wo con* [id number] IMPRESSION: 1. Mild to moderate central, subarticular recess and LEFT foraminal stenosis a t L4-5 due to disc and osteophyte and facet disease. Mild RIGHT foraminal steno sis. LEFT foraminal disc protrusion contributing to the stenosis on the LEFT. 2. Central disc osteophyte complex at L3-4. Mild central and bilateral subarti cular recess. Mild disc encroachment upon the traversing L4 nerve roots. Small bilateral foraminal disc osteophyte complexes. 3. Mild bilateral subarticular recess stenosis, RIGHT greater than LEFT. There is mild disc contact on the traversing RIGHT L3 nerve root. Disc osteophyte co mplex in the RIGHT foramen.
== END 2025-08-18 07:51 | disposition home or self-care (01) ==
LOC: RAD 07:51
PROVIDERS: PCP Internal Medicine; Visit Provider Internal Medicine
DX: M51.369 Other intervertebral disc degeneration, lumbar region without mention of lumbar back pain or lower extremity pain (principal); M48.061 Spinal stenosis, lumbar region without neurogenic claudication; M51.379 Other intervertebral disc degeneration, lumbosacral region without mention of lumbar back pain or lower extremity pain; M48.07 Spinal stenosis, lumbosacral region; M47.816 Spondylosis without myelopathy or radiculopathy, lumbar region; M47.817 Spondylosis without myelopathy or radiculopathy, lumbosacral region
CPT/HCPCS: 72148

== ENCOUNTER → 2025-08-24 08:19 | Outpatient (BNVA) | payer OTHER, SELFPAY | PROVIDERS: PCP Internal Medicine; Visit Provider Student in an Organized Health Care Education/Training Program | DX: M25.512 Pain in left shoulder (principal); R22.30 Localized swelling, mass and lump, unspecified upper limb | CPT/HCPCS: 73030 ==

== ENCOUNTER 2025-08-31 08:38 | Outpatient (CLI) | payer OTHER, SELFPAY ==
--- NOTE | 2025-08-31 08:45 | MR_ITS ---
WS: [id number] MRI LEFT SHOULDER, with and without IV contrast. HISTORY: R22.30 - Localized swelling, mass and lump, unspecified u... Pain. No injury. COMPARISON: Radiograph 08/24/2025 TECHNIQUE: Multiplanar sequences of the shoulder joint are submitted. Sagittal and axial T1 fat sat sequences post-MultiHance 12 cc IV. Nonenhancing mass follows fat signal on all sequences. This mass is centered in the superior posterior shoulder, just posterior to the distal clavicle. Mass measures 2.9 x 1.9 x 4.0 cm. Moderate AC joint arthritis. Mild hypertrophic osteophytes from the distal clavicle. AC joint is narrowed. Small amount of fluid in the subdeltoid bursa. Mild subacromial impingement by an enthesopathy from the acromion. Biceps tendon in normal position. Subchondral cystic changes in the posterior humeral head at the site of the rotator cuff attachment. Mild narrowing of the glenohumeral joint. No rotator cuff muscle atrophy or edema. Tendinopathy in the distal supraspinatus. No tear of the supraspinatus. Moderate thickening of the distal subscapularis tendon. No tendon tear identified. Infraspinatus tendon is intact. No labral tear. No enhancing masses or synovitis. MR/MR shoulder LT wo/w con [id number] IMPRESSION: 1. 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 No tg d enhancing mass. 2. Moderate AC joint arthritis. 3. Subchondral cystic changes in the posterior humeral head. 4. Mild tendinopathy in the distal supraspinatus and subscapularis tendons. No full-thickness tears. Slightly more tendinopathy in the subscapularis tendon. 5. No labral tear. 6. Mild subacromial impingement.
[2025-08-31] MEDS: gadobenate dimeglumine 20 mL vial 12 ML IV (09:37)
== END 2025-08-31 08:39 | disposition home or self-care (01) ==
LOC: RAD 08:42
PROVIDERS: PCP Internal Medicine; Visit Provider Student in an Organized Health Care Education/Training Program
DX: R22.30 Localized swelling, mass and lump, unspecified upper limb (principal); M75.42 Impingement syndrome of left shoulder; M19.012 Primary osteoarthritis, left shoulder; M85.612 Other cyst of bone, left shoulder; M75.32 Calcific tendinitis of left shoulder
CPT/HCPCS: 73223; A9577